=== PATIENT | male | born 1970 ===

== ENCOUNTER 2018-01-28 04:02 | Emergency (ER) | payer OTHER ==
[2018-01-28 04:15] VITALS: RESP 16; TEMP 98.1
[2018-01-28] MEDS ORDERED: Sodium Chloride 0.9% 1,000 ML IV STA (04:30)
[2018-01-28 04:33] LABS: URINE BACTERIA RARE (<OCC); URINE BILIRUBIN NEGATIVE (NEGATIVE); URINE BLOOD NEGATIVE (NEGATIVE); URINE CLARITY Hazy (Clear); URINE COLOR Yellow (YELLOW); URINE GLUCOSE (UA) NORMAL (Normal); URINE LEUKOCYTE ESTERASE NEG Leu/uL (Negative); URINE PROTEIN 1+ mg/dL (NEGATIVE); URINE UROBILINOGEN NORMAL mg/dL (0.2-1.0)
[2018-01-28 04:46] LABS: BASO % 0.5 % (0.0-2.0); EOS % 0.3 % (0.0-4.0); LYMPH # 1.3 K/uL (1.0-4.3); LYMPH % 13.5 % (20.0-40.0); MEAN CELL VOLUME 84.5 fL (80.0-94.0); MEAN CORPUSCULAR HEMOGLOBIN 30.1 pg (27.0-31.0); MEAN CORPUSCULAR HGB CONC 35.6 g/dL (33.0-37.0); MEAN PLATELET VOLUME 7.7 fL (7.2-11.7); MONO # 0.3 K/uL (0.0-0.8); MONO % 3.2 % (0.0-10.0); NEUT # 7.9 K/uL (1.8-7.0); NEUT % 82.5 % (50.0-75.0); RBC 4.98 Mil/uL (4.40-5.90); RED CELL DISTRIBUTION WIDTH 13.5 % (11.5-14.5); WHITE BLOOD COUNT 9.5 K/uL (4.8-10.8)
[2018-01-28 04:57] LABS: ALB/GLOB RATIO 1.1 (1.0-2.1); ALBUMIN 4.5 g/dL (3.5-5.0); ALT/SGPT 94 U/L (21-72); AST/SGOT 46 U/L (17-59); BLOOD UREA NITROGEN 18 mg/dL (9-20); CALCIUM 9.3 mg/dl (8.6-10.4); GFR AFRICAN-AMERICAN > 60; GFR NON-AFRICAN AMERICAN > 60; LIPASE 57 U/L (23-300)
[2018-01-28] MEDS ORDERED: Iodixanol 320 MG/ML 100 ML BOTTLE IV ONE (05:04)
[2018-01-28] MEDS ORDERED: Morphine 4 MG/ML VIAL ONE (05:08)
--- NOTE | 2018-01-28 05:33 | C.PDOC ---
History Of Present Illness 47 year old male presents to the ER with a complaint of periumbilical abdominal pain for the past 4 hours, associated with nausea and vomiting. Denies fever or chills. Time Seen by Provider: 01/28/18 04:23 Chief Complaint (Nursing): Abdominal Pain History Per: Patient History/Exam Limitations: no limitations Onset/Duration Of Symptoms: Hrs Current Symptoms Are (Timing): Still Present Location Of Pain/Discomfort: Periumbilical Radiation Of Pain To:: None Quality Of Discomfort: Unable To Describe Associated Symptoms: Nausea, Vomiting. denies: Fever, Chills Exacerbating Factors: None Alleviating Factors: None Recent travel outside of the [place]: No Past Medical History Reviewed: Historical Data, Nursing Documentation, Vital Signs Vital Signs: Last Vital Signs Temp 98.1 F 01/28/18 04:12 Pulse 88 01/28/18 05:15 Resp 16 01/28/18 05:15 BP 141/87 01/28/18 05:15 Pulse Ox 99 01/28/18 06:03 Family History: States: Unknown Family Hx - Social History Hx Alcohol Use: Yes Hx Substance Use: No - Immunization History Hx Tetanus Toxoid Vaccination: No Hx Influenza Vaccination: No Hx Pneumococcal Vaccination: No Review Of Systems Constitutional: Negative for: Fever, Chills Cardiovascular: Negative for: Chest Pain, Palpitations Respiratory: Negative for: Cough Gastrointestinal: Positive for: Nausea, Vomiting, Abdominal Pain Physical Exam - Physical Exam Appears: Non-toxic Skin: Normal Color, Warm, Dry Head: Atraumatic, Normacephalic Eye(s): bilateral: Normal Inspection Oral Mucosa: Moist Chest: Symmetrical, No Tenderness Cardiovascular: Rhythm Regular Respiratory: Normal Breath Sounds, No Rales, No Rhonchi, No Wheezing Gastrointestinal/Abdominal: Soft, Tenderness (Periumbilical), No Guarding, No Rebound Neurological/Psych: Oriented x3, Normal Speech ED Course And Treatment - Laboratory Results Result Diagrams: 01/28/18 04:40 01/28/18 04:40 O2 Sat by Pulse Oximetry: 99 (Room air) Pulse Ox Interpretation: Normal - CT Scan/US CT abd/pel Other Rad Studies (CT/US): Read By Radiologist, Radiology Report Reviewed CT/US Interpretation: EXAM: CT Abdomen and Pelvis With Intravenous Contrast. EXAM DATE/TIME: 01/28/2018 4:31 AM. CLINICAL HISTORY: 47 years old, male; Pain ; Abdominal pain; Periumbilical; Additional info: Periumbilical abd pain /. vomiting. TECHNIQUE: Axial computed tomography images of the abdomen and pelvis with intravenous contrast. All CT. scans at this facility use one or more dose reduction techniques, viz.: automated exposure control;. ma/kV adjustment per patient size (including targeted exams where dose is matched to indication; i.e. head); or iterative reconstruction technique. Coronal and sagittal reformatted images were created and reviewed. CONTRAST: 100 mL of [id number] administered intravenously. COMPARISON: No relevant prior studies available. FINDINGS: The gallbladder is distended and appears to contain sludge and stones. No pericholecystic. inflammation. The liver is normal. The spleen is normal. The pancreas is normal. No hydronephrosis or perinephric stranding. The bowel appears normal. A normal appendix is identified series 3 images 136 - 141. No aortic aneurysm or dissection. IMPRESSION: Cholelithiasis without evidence of cholecystitis. Progress Note: CT abd/pel, blood work, and urinalysis ordered. Morphine, protonix, zofran, and IV fluids administered. On reevaluation, patient is still complaining of pain, will give toradol. Disposition - Disposition Disposition Time: 07:00 Condition: FAIR Forms: [employer] ([place]akh) - Clinical Impression Clinical Impression: Abdominal pain - PA / GANG LEADER / Resident Statement MD/DO has reviewed & agrees with the documentation as recorded. - Scribe Statement The provider has reviewed the documentation as recorded by the Scribe Rob Rojas All medical record entries made by the Scribe were at my direction and personally dictated by me. I have reviewed the chart and agree that the record accurately reflects my personal performance of the history, physical exam, medical decision making, and the department course for this patient. I have also personally directed, reviewed, and agree with the discharge instructions and disposition. Physician Patient Turnover Patient Signed Over To: Verónica Vines Handoff Comments: abdominal US and dispo
--- NOTE | 2018-01-28 05:50 | CT ---
EXAM: CT Abdomen and Pelvis With Intravenous Contrast EXAM DATE/TIME: 01/28/2018 4:31 AM CLINICAL HISTORY: 47 years old, male; Pain; Abdominal pain; Periumbilical; Additional info: Periumbilical abd pain / vomiting TECHNIQUE: Axial computed tomography images of the abdomen and pelvis with intravenous contrast. All CT scans at this facility use one or more dose reduction techniques, viz.: automated exposure control; ma/kV adjustment per patient size (including targeted exams where dose is matched to indication; i.e. head); or iterative reconstruction technique. Coronal and sagittal reformatted images were created and reviewed. CONTRAST: 100 mL of [id number] administered intravenously. COMPARISON: No relevant prior studies available. FINDINGS: The gallbladder is distended and appears to contain sludge and stones. No pericholecystic inflammation. The liver is normal. The spleen is normal. The pancreas is normal. No hydronephrosis or perinephric stranding. The bowel appears normal. A normal appendix is identified series 3 images 136 - 141. No aortic aneurysm or dissection. IMPRESSION: Cholelithiasis without evidence of cholecystitis.
[2018-01-28 07:07] VITALS: BP 160/86; PULSE 76; O2SAT 100
--- NOTE | 2018-01-28 08:23 | US ---
Right upper quadrant abdominal ultrasound History: Periumbilical abdominal pain. Comparison: CT scan dated 01/28/2018 Technique: Real-time sonography was performed through the right upper quadrant of the abdomen. Findings: Liver: 16.1 centimeters in length. Increased echogenicity of the hepatic parenchymal cortex suggestive for fatty infiltration versus hepatic parenchymal disease. Clinical correlation. Gallbladder: Cholelithiasis. Prominent calculus measures up to 2.4 centimeters. Normal wall thickness of 1.2 millimeters. Negative sonographic Davis's sign. Common bile duct measures 3.7 millimeters, within normal limits. Limited visualization of the pancreas. Visualized aorta and IVC are preserved. Right kidney: 12.4 x 5.6 x 5.9 centimeters. No calculi or hydronephrosis. Impression: Cholelithiasis. Increased echogenicity of the hepatic parenchymal cortex suggestive for fatty infiltration versus hepatic parenchymal disease. Clinical correlation. Limited visualization of the pancreas.
== END 2018-01-28 08:40 | disposition home or self-care (01) ==
LOC: C.ER 04:02
DX: R10.9 Unspecified abdominal pain (principal); K80.20 Calculus of gallbladder without cholecystitis without obstruction
CPT/HCPCS: 74177; 76705; 80053; 81001; 83690; 85025; 96361; 96374; 96375; 99284; C9113; J1885; J2270; J2405; J7040; Q9967